=== PATIENT | male | born 1960 | race Caucasian/White ===

== ENCOUNTER 2020-02-03 15:11 | Inpatient (IN) ==
[2020-02-03] MEDS ORDERED: Naloxone 0.4 MG/ML INJ IVP PRN (17:49)
[2020-02-03] MEDS ORDERED: *HR* Heparin 5,000 UNIT/ML VIAL IVP ONE (17:53)
[2020-02-03] MEDS ORDERED: *HR* Heparin 5,000 UNIT/ML VIAL IVP PRN ×2 (17:53)
[2020-02-03] MEDS ORDERED: Isovue-370 500 ML BOTTLE IVP ONE (17:55)
[2020-02-03] MEDS ORDERED: Heparin 25,000 UNIT/250 ML D5W 25,000 UNIT/250 ML IV.SOLN IVC SCH (18:00)
[2020-02-03] MEDS ORDERED: Furosemide 40 MG/4 ML VIAL IVP SCH (21:00)
[2020-02-03 21:17] LABS: Heparin anti-factor XA UFH 0.3 IU/mL (0.30-0.70)
[2020-02-03 21:18] LABS: INR 1.3; Prothrombin Time 14.8 Seconds (9.4-12.1)
[2020-02-03] MEDS ORDERED: Famotidine 20 MG/2 ML VIAL IVP ONE (22:07)
[2020-02-03] MEDS ORDERED: methylPREDNISolone 125 MG/2 ML VIAL IVP ONE (22:11)
[2020-02-03] MEDS: levoFLOXacin 750 MG TABLET PO SCH (22:30)
[2020-02-03] MEDS: Metoprolol XL (24 HR) Succ 25 MG TAB.ER.24H PO SCH (22:30)
[2020-02-03] MEDS ORDERED: Acetaminophen 325 MG TABLET PO PRN (22:35)
[2020-02-04] MEDS ORDERED: Ketorolac 15 MG/ML VIAL IVP PRN (00:09)
[2020-02-04 00:18] LABS: Alanine Aminotransferase 17 Units/L (7-52); Albumin 3.4 g/dL (3.5-5.7); Alkaline Phosphatase 66 Units/L (34-104); Aspartate Amino Transferase 55 Units/L (13-39); BUN/Creatinine Ratio 17 (6-26); Blood Urea Nitrogen 24 mg/dL (8-23); Calcium 8.3 mg/dL (8.6-10.3); Carbon Dioxide 22 mEq/L (23-29); Chloride 101 mEq/L (98-107); Chol/HDL Ratio 2.5 (0-4.9); Cholesterol 76 mg/dL (< 200); Globulin 3.5 g/dL (2.4-3.5); Glucose 130 mg/dL (70-105); HDL Cholesterol 30 mg/dL (40-59); LDL Cholesterol,Calculated 29 mg/dL (0-99); Lactate Dehydrogenase 210 Units/L (140-271); Magnesium 1.3 mg/dL (1.6-2.6); Osmolality,Calculated 286 (280-300); Phosphorous 1.8 mg/dL (2.7-4.5); Potassium 3.1 mEq/L (3.5-5.1); Sodium 135 mEq/L (136-145); Total Protein 6.9 g/dL (6.4-8.9); Triglycerides 83 mg/dL (< 150); eGFR For African Americans > 60 (> 60); eGFR For Non-African Americans 51 (> 60)
[2020-02-04 00:26] LABS: Hematocrit 38.8 % (37.5-50.1); Mean Corpuscular HGB Conc 33.5 g/dL (31.6-35.5); Mean Corpuscular Hemoglobin 31.3 pg (28.0-33.3); Mean Corpuscular Volume 93.3 fL (83.0-100.0); Mean Platelet Volume 10.9 fL (9.4-12.4); Platelet Count 137 K/mcL (140-400); Red Blood Count 4.16 M/mcL (4.19-5.50); Red Cell Distribution Width 13.7 % (11.5-14.5); White Blood Count 8.3 K/mcL (4.3-11.1)
[2020-02-04 00:38] LABS: Ferritin 200 ng/mL (20-250)
[2020-02-04] MEDS ORDERED: Heparin 25,000 UNIT/250 ML D5W 25,000 UNIT/250 ML IV.SOLN IVC SCH (01:00)
[2020-02-04 02:26] LABS: Amphetamine Screen,Urine Negative ng/mL (Cutoff=1000); Barbiturate Screen,Urine Negative ng/mL (Cutoff=200); Benzodiazepines Screen,Urine Negative ng/mL (Cutoff=200); Cannabinoid Screen,Urine Negative ng/mL (Cutoff = 50); Cocaine Screen,Urine Negative ng/mL (Cutoff= 300); Opiate Screen,Urine Negative ng/mL (Cutoff=300); Phencyclidine Screen,Urine Negative ng/mL (Cutoff=25)
[2020-02-04 02:28] LABS: Bilirubin,Urine Negative (Negative); Blood,Urine Small (Negative); Clarity,Urine Cloudy (Clear); Color,Urine Yellow (Yellow); Glucose,Urine (UA) Normal (Normal); Ketones,Urine Negative (Negative); Leukocyte Esterase,Urine Negative (Negative); Nitrite,Urine Negative (Negative); Protein,Urine Negative (Neg-Trace); Specific Gravity,Urine 1.021 (1.010-1.025); Urobilinogen,Urine Normal (Normal)
[2020-02-04 02:29] LABS: Hyaline Casts,Urine None Seen per lpf (None-Few); RBC,Urine 0-3 per hpf (0-3); Squamous Epithelial Cell,Urine Many per lpf (None-Few); WBC,Urine 0-3 per hpf (0-3)
[2020-02-04 03:28] LABS: Bacteria,Urine Few per hpf (None-Few)
[2020-02-04] MEDS ORDERED: Potassium Phosphate 44 MEQ in 0.9 % Sodium Chloride 250 ML IVPB ONE (07:50)
[2020-02-04] MEDS ORDERED: 0.9 % Sodium Chloride 1,000 ML IVC SCH (09:00)
[2020-02-04] MEDS: levoFLOXacin 750 MG TABLET PO SCH (09:04)
[2020-02-04] MEDS: Metoprolol XL (24 HR) Succ 25 MG TAB.ER.24H PO SCH (09:05)
[2020-02-04] MEDS: 0.9 % Sodium Chloride 1,000 ML IVC SCH (11:34)
[2020-02-04] MEDS: Cortisporin *EAR*Susp 10 ML BOTTLE RIGHT EAR SCH ×3 (11:37→21:52)
[2020-02-04 14:59] LABS: Basophils % 0.3 %; Mean Platelet Volume 11.2 fL (9.4-12.4); Platelet Count 113 K/mcL (140-400)
[2020-02-04 15:01] LABS: Hematocrit 40.2 % (37.5-50.1); Hemoglobin 13.5 g/dL (12.9-16.9); Immature Granulocytes % 0.7 % (0-4); Immature Platelets 6.9 % (1.1-6.1); Lymphocytes # 0.6 K/mcL (0.6-4.6); Lymphocytes % 5.5 %; Mean Corpuscular HGB Conc 33.6 g/dL (31.6-35.5); Mean Corpuscular Hemoglobin 31.5 pg (28.0-33.3); Mean Corpuscular Volume 93.9 fL (83.0-100.0); Monocytes # 0.3 K/mcL (0.0-1.3); Monocytes % 2.3 %; Neutrophils # 10.5 K/mcL (1.6-8.9); Red Blood Count 4.28 M/mcL (4.19-5.50); Segmented Neutrophils % 91.2 %; White Blood Count 11.5 K/mcL (4.3-11.1)
[2020-02-04 15:16] LABS: Alanine Aminotransferase 23 Units/L (7-52); Albumin 3.7 g/dL (3.5-5.7); Alkaline Phosphatase 57 Units/L (34-104); Aspartate Amino Transferase 78 Units/L (13-39); BUN/Creatinine Ratio 31 (6-26); Bilirubin,Total 1.3 mg/dL (0.3-1.0); Blood Urea Nitrogen 32 mg/dL (8-23); Calcium 8.9 mg/dL (8.6-10.3); Carbon Dioxide 23 mEq/L (23-29); Chloride 103 mEq/L (98-107); Globulin 3.7 g/dL (2.4-3.5); Glucose 134 mg/dL (70-105); Osmolality,Calculated 293 (280-300); Potassium 3.4 mEq/L (3.5-5.1); Sodium 137 mEq/L (136-145); Total Protein 7.4 g/dL (6.4-8.9); eGFR For African Americans > 60 (> 60); eGFR For Non-African Americans > 60 (> 60)
[2020-02-04] MEDS: *HR* Heparin 5,000 UNIT/ML VIAL SQ SCH (18:08)
[2020-02-04] MEDS: Aspirin Enteric Coated 81 MG Tablet PO SCH (18:10)
[2020-02-05] MEDS: *HR* Heparin 5,000 UNIT/ML VIAL SQ SCH ×2 (05:00→18:24)
[2020-02-05 05:37] LABS: Hematocrit 39.4 % (37.5-50.1); Hemoglobin 13.2 g/dL (12.9-16.9); Immature Platelets 8.2 % (1.1-6.1); Mean Corpuscular HGB Conc 33.5 g/dL (31.6-35.5); Mean Corpuscular Hemoglobin 31.3 pg (28.0-33.3); Mean Corpuscular Volume 93.4 fL (83.0-100.0); Mean Platelet Volume 11.5 fL (9.4-12.4); Red Blood Count 4.22 M/mcL (4.19-5.50); White Blood Count 12.9 K/mcL (4.3-11.1)
[2020-02-05 05:54] LABS: BUN/Creatinine Ratio 36 (6-26); Blood Urea Nitrogen 32 mg/dL (8-23); Calcium 8.5 mg/dL (8.6-10.3); Carbon Dioxide 23 mEq/L (23-29); Chloride 103 mEq/L (98-107); Glucose 145 mg/dL (70-105); Osmolality,Calculated 289 (280-300); Potassium 3.3 mEq/L (3.5-5.1); Sodium 135 mEq/L (136-145); eGFR For African Americans > 60 (> 60); eGFR For Non-African Americans > 60 (> 60)
[2020-02-05] MEDS: 0.9 % Sodium Chloride 1,000 ML IVC SCH (07:38)
[2020-02-05] MEDS: Isosorbide MONOnitrate (24 HR) 30 MG TAB.ER.24H PO SCH (09:50)
[2020-02-05] MEDS: Aspirin Enteric Coated 81 MG Tablet PO SCH (09:50)
[2020-02-05] MEDS: levoFLOXacin 750 MG TABLET PO SCH (09:50)
[2020-02-05] MEDS: Metoprolol XL (24 HR) Succ 25 MG TAB.ER.24H PO SCH (09:51)
[2020-02-05] MEDS: Cortisporin *EAR*Susp 10 ML BOTTLE RIGHT EAR SCH ×3 (09:52→19:59)
[2020-02-05] MEDS: Ondansetron 4 MG/2 ML VIAL IVP PRN (19:57)
[2020-02-06 03:45] LABS: Basophils % 0.2 %; Hematocrit 38.6 % (37.5-50.1); Hemoglobin 12.6 g/dL (12.9-16.9); Immature Granulocytes % 0.7 % (0-4); Immature Platelets 7.5 % (1.1-6.1); Lymphocytes # 0.6 K/mcL (0.6-4.6); Lymphocytes % 6.4 %; Mean Corpuscular HGB Conc 32.6 g/dL (31.6-35.5); Mean Corpuscular Hemoglobin 30.9 pg (28.0-33.3); Mean Corpuscular Volume 94.6 fL (83.0-100.0); Mean Platelet Volume 12.2 fL (9.4-12.4); Monocytes # 0.7 K/mcL (0.0-1.3); Monocytes % 8.3 %; Neutrophils # 7.3 K/mcL (1.6-8.9); Red Blood Count 4.08 M/mcL (4.19-5.50); Red Cell Distribution Width 13.8 % (11.5-14.5); Segmented Neutrophils % 84.4 %; White Blood Count 8.7 K/mcL (4.3-11.1)
[2020-02-06 03:53] LABS: Platelet Count 97 K/mcL (140-400)
[2020-02-06 04:00] LABS: BUN/Creatinine Ratio 28 (6-26); Blood Urea Nitrogen 29 mg/dL (8-23); Calcium 8.2 mg/dL (8.6-10.3); Carbon Dioxide 24 mEq/L (23-29); Chloride 103 mEq/L (98-107); Glucose 117 mg/dL (70-105); Osmolality,Calculated 289 (280-300); Potassium 3.4 mEq/L (3.5-5.1); Sodium 136 mEq/L (136-145); eGFR For African Americans > 60 (> 60); eGFR For Non-African Americans > 60 (> 60)
[2020-02-06] MEDS: *HR* Heparin 5,000 UNIT/ML VIAL SQ SCH ×2 (05:50→16:13)
[2020-02-06] MEDS: Ondansetron 4 MG/2 ML VIAL IVP PRN (05:51)
[2020-02-06] MEDS ORDERED: polyethylene glycoL 3350 17 GM POWD.PACK PO PRN (06:01)
[2020-02-06 08:29] LABS: Magnesium 1.8 mg/dL (1.6-2.6); Phosphorous 2.6 mg/dL (2.7-4.5)
[2020-02-06] MEDS: Potassium Chloride Elixir 20 MEQ/15 ML UDC PO SCH ×2 (08:55→11:17)
[2020-02-06] MEDS: Metoprolol XL (24 HR) Succ 25 MG TAB.ER.24H PO SCH (08:56)
[2020-02-06] MEDS: Aspirin Enteric Coated 81 MG Tablet PO SCH (08:56)
[2020-02-06] MEDS: Isosorbide MONOnitrate (24 HR) 30 MG TAB.ER.24H PO SCH (08:56)
[2020-02-06] MEDS: levoFLOXacin 750 MG TABLET PO SCH (08:57)
[2020-02-06] MEDS: Cortisporin *EAR*Susp 10 ML BOTTLE RIGHT EAR SCH ×3 (09:44→21:26)
[2020-02-06] MEDS ORDERED: Naloxone 0.4 MG/ML INJ IVP PRN (11:10)
[2020-02-06] MEDS ORDERED: *HR* HYDROcodone/Acet 5/325 mg TABLET PO PRN (11:10)
[2020-02-06] MEDS ORDERED: Lactulose Oral Soln 20 GM/30 ML UDC PO SCH (12:15)
[2020-02-06] MEDS: Milk and Molasses Enema 200 ML RC ONE ×2 (13:36→13:54)
[2020-02-06] MEDS ORDERED: Perflutren Lipid Microsphere 1.3 ML in 0.9 % Sodium Chloride 8.7 ML IVP ONE (19:36)
[2020-02-06] MEDS: Nitroglycerin 0.4 MG TAB.SUBL SL PRN ×2 (21:05→21:15)
[2020-02-07] MEDS ORDERED: *HR* LORazepam 2 MG/ML VIAL IVP ONE ×2 (03:10→20:29)
[2020-02-07] MEDS: Nitroglycerin 0.4 MG TAB.SUBL SL PRN ×2 (03:20→03:27)
[2020-02-07] MEDS: Levalbuterol 1 PUFF INHALER IH SCH ×6 (03:54→23:24)
[2020-02-07 04:02] LABS: Hematocrit 41.7 % (37.5-50.1); Mean Corpuscular HGB Conc 33.6 g/dL (31.6-35.5); Mean Corpuscular Hemoglobin 31.9 pg (28.0-33.3); Mean Platelet Volume 11.8 fL (9.4-12.4); Platelet Count 106 K/mcL (140-400); Red Blood Count 4.39 M/mcL (4.19-5.50); Red Cell Distribution Width 13.9 % (11.5-14.5); White Blood Count 6.4 K/mcL (4.3-11.1)
[2020-02-07 04:27] LABS: BUN/Creatinine Ratio 23 (6-26); Blood Urea Nitrogen 25 mg/dL (8-23); Calcium 8.5 mg/dL (8.6-10.3); Carbon Dioxide 19 mEq/L (23-29); Chloride 106 mEq/L (98-107); Glucose 121 mg/dL (70-105); Magnesium 1.6 mg/dL (1.6-2.6); Osmolality,Calculated 292 (280-300); Potassium 4.3 mEq/L (3.5-5.1); Sodium 138 mEq/L (136-145); Troponin I 0.03 ng/mL (< 0.04); eGFR For African Americans > 60 (> 60); eGFR For Non-African Americans > 60 (> 60)
[2020-02-07] MEDS: *HR* Heparin 5,000 UNIT/ML VIAL SQ SCH ×2 (05:43→17:27)
[2020-02-07] MEDS: Aspirin Enteric Coated 81 MG Tablet PO SCH (07:48)
[2020-02-07] MEDS: levoFLOXacin 750 MG TABLET PO SCH (07:48)
[2020-02-07] MEDS: Isosorbide MONOnitrate (24 HR) 30 MG TAB.ER.24H PO SCH (07:48)
[2020-02-07] MEDS: Metoprolol XL (24 HR) Succ 25 MG TAB.ER.24H PO SCH (07:49)
[2020-02-07] MEDS: Cortisporin *EAR*Susp 10 ML BOTTLE RIGHT EAR SCH ×3 (07:50→20:47)
[2020-02-07] MEDS: *HR* OxyCODONE Immed Rel 5 MG TABLET PO PRN (17:26)
[2020-02-07] MEDS ORDERED: Acetaminophen IV 1,000 MG/100 ML INFUS..BTL IVPB ONE (21:13)
[2020-02-07 21:32] LABS: ABG Base Excess 2 mEq/L (-2 to 3); ABG HCO3 25 mEq/L (21-27); ABG Oxygen Saturation 90 % (95-98); ABG PCO2 34 mmHg (35-45); ABG PH 7.48 pH Units (7.32-7.45); ABG PO2 54 mmHg (85-104); ABG TCO2 26 mEq/L (20-26)
[2020-02-07] MEDS: Calcium Gluconate 1gm/50mL 1 GM/50 ML BAG IVPB SCH ×2 (22:36→23:37)
[2020-02-08 01:04] LABS: Hematocrit 37.1 % (37.5-50.1); Hemoglobin 12.3 g/dL (12.9-16.9); Mean Corpuscular HGB Conc 33.2 g/dL (31.6-35.5); Mean Corpuscular Hemoglobin 31.5 pg (28.0-33.3); Mean Corpuscular Volume 95.1 fL (83.0-100.0); Mean Platelet Volume 11.7 fL (9.4-12.4); Red Blood Count 3.9 M/mcL (4.19-5.50); Red Cell Distribution Width 13.7 % (11.5-14.5); White Blood Count 7.8 K/mcL (4.3-11.1)
[2020-02-08 01:14] LABS: BUN/Creatinine Ratio 22 (6-26); Blood Urea Nitrogen 24 mg/dL (8-23); Calcium 8.6 mg/dL (8.6-10.3); Carbon Dioxide 24 mEq/L (23-29); Chloride 101 mEq/L (98-107); Glucose 141 mg/dL (70-105); Osmolality,Calculated 282 (280-300); Potassium 3.4 mEq/L (3.5-5.1); Sodium 133 mEq/L (136-145); eGFR For African Americans > 60 (> 60); eGFR For Non-African Americans > 60 (> 60)
[2020-02-08] MEDS: Levalbuterol 1 PUFF INHALER IH SCH ×6 (03:54→23:17)
[2020-02-08] MEDS: *HR* Heparin 5,000 UNIT/ML VIAL SQ SCH ×2 (05:50→16:44)
[2020-02-08 09:10] LABS: Eosinophils % 1.2 %; Lymphocytes % 15.3 %; Segmented Neutrophils % 67.6 %
[2020-02-08 09:12] LABS: Basophils # 0.1 K/mcL (0.0-0.2); Basophils % 0.7 %; Eosinophils # 0.1 K/mcL (0.0-0.6); Hematocrit 38.2 % (37.5-50.1); Hemoglobin 12.6 g/dL (12.9-16.9); Immature Granulocytes % 2.1 % (0-4); Immature Platelets 9.5 % (1.1-6.1); Lymphocytes # 1.2 K/mcL (0.6-4.6); Mean Corpuscular Hemoglobin 31.5 pg (28.0-33.3); Mean Corpuscular Volume 95.5 fL (83.0-100.0); Mean Platelet Volume 11.1 fL (9.4-12.4); Monocytes % 13.1 %; Neutrophils # 5.2 K/mcL (1.6-8.9); Platelet Count 95 K/mcL (140-400); White Blood Count 7.7 K/mcL (4.3-11.1)
[2020-02-08 09:54] LABS: BUN/Creatinine Ratio 24 (6-26); Blood Urea Nitrogen 21 mg/dL (8-23); Calcium 8.5 mg/dL (8.6-10.3); Carbon Dioxide 26 mEq/L (23-29); Chloride 104 mEq/L (98-107); Glucose 98 mg/dL (70-105); Osmolality,Calculated 285 (280-300); Potassium 4.3 mEq/L (3.5-5.1); Sodium 136 mEq/L (136-145); eGFR For African Americans > 60 (> 60); eGFR For Non-African Americans > 60 (> 60)
[2020-02-08] MEDS: Isosorbide MONOnitrate (24 HR) 30 MG TAB.ER.24H PO SCH (10:34)
[2020-02-08] MEDS: *HR* OxyCODONE Immed Rel 5 MG TABLET PO PRN ×2 (10:34→19:57)
[2020-02-08] MEDS: Aspirin Enteric Coated 81 MG Tablet PO SCH (10:34)
[2020-02-08] MEDS: Piperacillin/Tazobactam 3.375 GM in 0.9 % Sodium Chloride Mini Bag 100 ML IVPB SCH ×2 (10:34→16:44)
[2020-02-08] MEDS: Metoprolol XL (24 HR) Succ 25 MG TAB.ER.24H PO SCH (10:34)
[2020-02-08] MEDS: Cortisporin *EAR*Susp 10 ML BOTTLE RIGHT EAR SCH ×3 (10:36→19:58)
[2020-02-08 10:51] LABS: Albumin 2.9 g/dL (3.5-5.7); Albumin/Globulin Ratio 0.9 (1.1-2.2); Bilirubin,Direct 0.4 mg/dL (0.0-0.2); Bilirubin,Indirect 0.7 mg/dL (0.0-1.0); Bilirubin,Total 1.1 mg/dL (0.3-1.0); Globulin 3.2 g/dL (2.4-3.5); Total Protein 6.1 g/dL (6.4-8.9)
[2020-02-08] MEDS: Furosemide 20 MG/2 ML VIAL IVP SCH ×2 (15:00→19:57)
[2020-02-08] MEDS: Doxycycline 100 MG in 0.9 % Sodium Chloride Mini Bag 100 ML IVPB SCH (15:40)
[2020-02-08] MEDS: Lactulose Oral Soln 20 GM/30 ML UDC PO SCH ×2 (18:21→19:57)
[2020-02-09] MEDS: Piperacillin/Tazobactam 3.375 GM in 0.9 % Sodium Chloride Mini Bag 100 ML IVPB SCH ×3 (00:34→17:59)
[2020-02-09] MEDS: Doxycycline 100 MG in 0.9 % Sodium Chloride Mini Bag 100 ML IVPB SCH ×2 (02:54→13:26)
[2020-02-09] MEDS: Levalbuterol 1 PUFF INHALER IH SCH ×6 (03:25→23:10)
[2020-02-09] MEDS: *HR* Heparin 5,000 UNIT/ML VIAL SQ SCH ×2 (05:57→17:55)
[2020-02-09] MEDS: *HR* OxyCODONE Immed Rel 5 MG TABLET PO PRN (05:59)
[2020-02-09] MEDS: Lactulose Oral Soln 20 GM/30 ML UDC PO SCH ×2 (08:02→20:42)
[2020-02-09] MEDS: Aspirin Enteric Coated 81 MG Tablet PO SCH (08:02)
[2020-02-09] MEDS: Furosemide 20 MG/2 ML VIAL IVP SCH ×2 (08:02→20:42)
[2020-02-09] MEDS: Isosorbide MONOnitrate (24 HR) 30 MG TAB.ER.24H PO SCH (08:02)
[2020-02-09] MEDS: Metoprolol XL (24 HR) Succ 25 MG TAB.ER.24H PO SCH (08:02)
[2020-02-09] MEDS: Cortisporin *EAR*Susp 10 ML BOTTLE RIGHT EAR SCH ×3 (09:25→20:42)
[2020-02-09 10:26] LABS: Basophils # 0.1 K/mcL (0.0-0.2); Basophils % 1.1 %; Eosinophils # 0.3 K/mcL (0.0-0.6); Eosinophils % 2.5 %; Hematocrit 38.7 % (37.5-50.1); Hemoglobin 13.1 g/dL (12.9-16.9); Immature Granulocytes % 3.4 % (0-4); Lymphocytes # 1.6 K/mcL (0.6-4.6); Lymphocytes % 15.5 %; Mean Corpuscular HGB Conc 33.9 g/dL (31.6-35.5); Mean Corpuscular Hemoglobin 31.5 pg (28.0-33.3); Mean Platelet Volume 11.5 fL (9.4-12.4); Monocytes # 1.3 K/mcL (0.0-1.3); Monocytes % 12.3 %; Neutrophils # 6.7 K/mcL (1.6-8.9); Platelet Count 150 K/mcL (140-400); Red Blood Count 4.16 M/mcL (4.19-5.50); Red Cell Distribution Width 13.9 % (11.5-14.5); Segmented Neutrophils % 65.2 %; White Blood Count 10.3 K/mcL (4.3-11.1)
[2020-02-09 10:39] LABS: BUN/Creatinine Ratio 17 (6-26); Blood Urea Nitrogen 19 mg/dL (8-23); Calcium 8.4 mg/dL (8.6-10.3); Carbon Dioxide 26 mEq/L (23-29); Chloride 101 mEq/L (98-107); Glucose 131 mg/dL (70-105); Osmolality,Calculated 286 (280-300); Potassium 3.8 mEq/L (3.5-5.1); Sodium 136 mEq/L (136-145); eGFR For African Americans > 60 (> 60); eGFR For Non-African Americans > 60 (> 60)
[2020-02-09] MEDS: Acetaminophen 325 MG TABLET PO PRN (19:47)
[2020-02-09] MEDS: Ondansetron 4 MG/2 ML VIAL IVP PRN (20:47)
[2020-02-10] MEDS: Piperacillin/Tazobactam 3.375 GM in 0.9 % Sodium Chloride Mini Bag 100 ML IVPB SCH ×3 (00:33→17:16)
[2020-02-10] MEDS ORDERED: Doxycycline 100 MG in 0.9 % Sodium Chloride Mini Bag 100 ML IVPB SCH (04:00)
[2020-02-10] MEDS: Levalbuterol 1 PUFF INHALER IH SCH ×6 (04:06→23:50)
[2020-02-10] MEDS: Doxycycline 100 MG in 0.9 % Sodium Chloride Mini Bag 100 ML IVPB SCH (04:08)
[2020-02-10] MEDS: *HR* Heparin 5,000 UNIT/ML VIAL SQ SCH ×2 (06:09→17:18)
[2020-02-10 07:30] LABS: Basophils # 0.1 K/mcL (0.0-0.2); Eosinophils # 0.2 K/mcL (0.0-0.6); Hematocrit 41.5 % (37.5-50.1); Hemoglobin 13.7 g/dL (12.9-16.9); Immature Granulocytes % 3.8 % (0-4); Lymphocytes % 16.8 %; Mean Corpuscular Hemoglobin 31.1 pg (28.0-33.3); Mean Corpuscular Volume 94.3 fL (83.0-100.0); Mean Platelet Volume 12.3 fL (9.4-12.4); Monocytes # 1.5 K/mcL (0.0-1.3); Monocytes % 12.7 %; Neutrophils # 7.5 K/mcL (1.6-8.9); Platelet Count 132 K/mcL (140-400); Red Cell Distribution Width 13.6 % (11.5-14.5); Segmented Neutrophils % 63.7 %; White Blood Count 11.7 K/mcL (4.3-11.1)
[2020-02-10 07:35] LABS: BUN/Creatinine Ratio 18 (6-26); Blood Urea Nitrogen 20 mg/dL (8-23); Calcium 8.7 mg/dL (8.6-10.3); Carbon Dioxide 29 mEq/L (23-29); Chloride 100 mEq/L (98-107); Glucose 106 mg/dL (70-105); Osmolality,Calculated 287 (280-300); Sodium 137 mEq/L (136-145); eGFR For African Americans > 60 (> 60); eGFR For Non-African Americans > 60 (> 60)
[2020-02-10] MEDS: Furosemide 20 MG/2 ML VIAL IVP SCH ×2 (08:38→21:42)
[2020-02-10] MEDS: Lactulose Oral Soln 20 GM/30 ML UDC PO SCH ×3 (08:38→21:43)
[2020-02-10] MEDS: Aspirin Enteric Coated 81 MG Tablet PO SCH (08:38)
[2020-02-10] MEDS: Isosorbide MONOnitrate (24 HR) 30 MG TAB.ER.24H PO SCH (08:38)
[2020-02-10] MEDS: Metoprolol XL (24 HR) Succ 25 MG TAB.ER.24H PO SCH (08:38)
[2020-02-10] MEDS: Cortisporin *EAR*Susp 10 ML BOTTLE RIGHT EAR SCH ×3 (08:39→21:43)
[2020-02-10] MEDS: Vancomycin 2,000 MG/520 ML IV.SOLN IVPB ONE ×2 (09:40→10:39)
[2020-02-10] MEDS: *HR* OxyCODONE Immed Rel 5 MG TABLET PO PRN ×2 (09:49→21:42)
[2020-02-10] MEDS: Ondansetron 4 MG/2 ML VIAL IVP PRN (10:42)
[2020-02-10] MEDS: Acetaminophen 325 MG TABLET PO PRN (16:10)
[2020-02-10] MEDS ORDERED: Vancomycin 1 EACH in 0.9 % Sodium Chloride 250 ML IVPB SCH (18:00)
[2020-02-10 20:49] LABS: Bilirubin,Urine Negative (Negative); Blood,Urine Negative (Negative); Clarity,Urine Clear (Clear); Color,Urine Yellow (Yellow); Glucose,Urine (UA) Normal (Normal); Ketones,Urine Negative (Negative); Leukocyte Esterase,Urine Negative (Negative); Nitrite,Urine Negative (Negative); Protein,Urine Trace mg/dL (Neg-Trace); Specific Gravity,Urine 1.027 (1.010-1.025)
[2020-02-10] MEDS ORDERED: Vancomycin 2,000 MG/520 ML IV.SOLN IVPB ONE (22:00)
[2020-02-11] MEDS: Piperacillin/Tazobactam 3.375 GM in 0.9 % Sodium Chloride Mini Bag 100 ML IVPB SCH ×4 (00:13→23:49)
[2020-02-11] MEDS: Levalbuterol 1 PUFF INHALER IH SCH ×5 (03:53→20:38)
[2020-02-11] MEDS: *HR* Heparin 5,000 UNIT/ML VIAL SQ SCH ×2 (05:30→19:34)
[2020-02-11] MEDS ORDERED: Piperacillin/Tazobactam 3.375 GM VIAL ONE (08:58)
[2020-02-11] MEDS: Isosorbide MONOnitrate (24 HR) 30 MG TAB.ER.24H PO SCH (09:19)
[2020-02-11] MEDS: Lactulose Oral Soln 20 GM/30 ML UDC PO SCH ×2 (09:19→21:00)
[2020-02-11] MEDS: Metoprolol XL (24 HR) Succ 25 MG TAB.ER.24H PO SCH (09:19)
[2020-02-11] MEDS: Aspirin Enteric Coated 81 MG Tablet PO SCH (09:19)
[2020-02-11] MEDS: *HR* OxyCODONE Immed Rel 5 MG TABLET PO PRN ×2 (09:22→20:48)
[2020-02-11] MEDS: Cortisporin *EAR*Susp 10 ML BOTTLE RIGHT EAR SCH ×3 (09:22→20:49)
[2020-02-11] MEDS: Vancomycin 1,500 MG/265 ML IV.SOLN IVPB SCH (09:25)
[2020-02-11] MEDS: Ondansetron 4 MG/2 ML VIAL IVP PRN (09:28)
[2020-02-11] MEDS: Acetaminophen 325 MG TABLET PO PRN (13:16)
[2020-02-11 14:03] LABS: Basophils # 0.1 K/mcL (0.0-0.2); Basophils % 0.9 %; Eosinophils # 0.1 K/mcL (0.0-0.6); Eosinophils % 1.2 %; Hematocrit 36.4 % (37.5-50.1); Immature Granulocytes % 3.1 % (0-4); Lymphocytes # 1.1 K/mcL (0.6-4.6); Mean Corpuscular Hemoglobin 31.1 pg (28.0-33.3); Mean Corpuscular Volume 94.3 fL (83.0-100.0); Mean Platelet Volume 10.9 fL (9.4-12.4); Monocytes # 0.9 K/mcL (0.0-1.3); Monocytes % 9.4 %; Neutrophils # 6.8 K/mcL (1.6-8.9); Platelet Count 168 K/mcL (140-400); Red Blood Count 3.86 M/mcL (4.19-5.50); Red Cell Distribution Width 13.3 % (11.5-14.5); Segmented Neutrophils % 73.4 %; White Blood Count 9.3 K/mcL (4.3-11.1)
[2020-02-11 14:17] LABS: BUN/Creatinine Ratio 18 (6-26); Blood Urea Nitrogen 15 mg/dL (8-23); Calcium 8.1 mg/dL (8.6-10.3); Carbon Dioxide 33 mEq/L (23-29); Chloride 97 mEq/L (98-107); Glucose 101 mg/dL (70-105); Osmolality,Calculated 275 (280-300); Potassium 3.4 mEq/L (3.5-5.1); Sodium 132 mEq/L (136-145); eGFR For African Americans > 60 (> 60); eGFR For Non-African Americans > 60 (> 60)
[2020-02-11] MEDS ORDERED: *HR* Propofol 200 MG/20 ML VIAL IVP ONE (16:02)
[2020-02-11] MEDS ORDERED: Lidocaine -MPF 2% 2 ML VIAL ONE (16:02)
[2020-02-11] MEDS ORDERED: *HR* FentaNYL (PF) 100 MCG/2 ML VIAL ONE ×2 (16:02→17:39)
[2020-02-11] MEDS ORDERED: Ciprofloxacin/Dex *EAR* Susp 7.5 ML BOTTLE ONE (16:10)
[2020-02-11] MEDS ORDERED: Ondansetron 4 MG/2 ML VIAL ONE (16:44)
[2020-02-11] MEDS ORDERED: Dexamethasone 4 MG/ML VIAL ONE (16:44)
[2020-02-11] MEDS ORDERED: Oxymetazoline Nasal SPRAY BOTTLE NS ONE (16:54)
[2020-02-11] MEDS ORDERED: *HR* PHENYLEPHRINE 1,000 MCG/10 ML SYRINGE IVP ONE (16:57)
[2020-02-11] MEDS ORDERED: *HR* FentaNYL (PF) 100 MCG/2 ML VIAL IVP PRN (17:37)
[2020-02-11] MEDS: Ondansetron 4 MG/2 ML VIAL IVP SCH ×2 (19:35→23:49)
[2020-02-11] MEDS: Ciprofloxacin/Dex *EAR* Susp 7.5 ML BOTTLE RIGHT EAR SCH ×2 (19:35→20:49)
[2020-02-11] MEDS: Vancomycin 1,750 MG/517.5 ML IV.SOLN IVPB SCH (23:48)
[2020-02-12] MEDS: Vancomycin 1,500 MG/265 ML IV.SOLN IVPB SCH
[2020-02-12] MEDS: Levalbuterol 1 PUFF INHALER IH SCH ×6 (00:25→19:59)
[2020-02-12] MEDS: *HR* Heparin 5,000 UNIT/ML VIAL SQ SCH ×2 (05:20→17:52)
[2020-02-12] MEDS: Ondansetron 4 MG/2 ML VIAL IVP SCH ×3 (05:20→17:53)
[2020-02-12 06:50] LABS: BUN/Creatinine Ratio 18 (6-26); Blood Urea Nitrogen 17 mg/dL (8-23); Carbon Dioxide 26 mEq/L (23-29); Chloride 99 mEq/L (98-107); Glucose 96 mg/dL (70-105); Osmolality,Calculated 277 (280-300); Potassium 4.2 mEq/L (3.5-5.1); Sodium 133 mEq/L (136-145); eGFR For African Americans > 60 (> 60); eGFR For Non-African Americans > 60 (> 60)
[2020-02-12] MEDS: Piperacillin/Tazobactam 3.375 GM in 0.9 % Sodium Chloride Mini Bag 100 ML IVPB SCH (08:44)
[2020-02-12] MEDS: Isosorbide MONOnitrate (24 HR) 30 MG TAB.ER.24H PO SCH (08:45)
[2020-02-12] MEDS: Aspirin Enteric Coated 81 MG Tablet PO SCH (08:45)
[2020-02-12] MEDS: Metoprolol XL (24 HR) Succ 25 MG TAB.ER.24H PO SCH (08:45)
[2020-02-12] MEDS: Ciprofloxacin/Dex *EAR* Susp 7.5 ML BOTTLE RIGHT EAR SCH ×3 (08:47→20:40)
[2020-02-12] MEDS: Lactulose Oral Soln 20 GM/30 ML UDC PO SCH ×2 (08:47→20:40)
[2020-02-12] MEDS: Furosemide 20 MG/2 ML VIAL IVP SCH ×2 (08:48→20:40)
[2020-02-12 09:08] LABS: Basophils # 0.1 K/mcL (0.0-0.2); Basophils % 0.7 %; Eosinophils % 0.5 %; Hematocrit 35.3 % (37.5-50.1); Hemoglobin 11.7 g/dL (12.9-16.9); Immature Granulocytes % 3.3 % (0-4); Lymphocytes # 1.2 K/mcL (0.6-4.6); Lymphocytes % 14.2 %; Mean Corpuscular HGB Conc 33.1 g/dL (31.6-35.5); Mean Corpuscular Volume 93.4 fL (83.0-100.0); Mean Platelet Volume 11.3 fL (9.4-12.4); Monocytes # 0.8 K/mcL (0.0-1.3); Monocytes % 8.8 %; Neutrophils # 6.3 K/mcL (1.6-8.9); Platelet Count 155 K/mcL (140-400); Red Blood Count 3.78 M/mcL (4.19-5.50); Segmented Neutrophils % 72.5 %; White Blood Count 8.6 K/mcL (4.3-11.1)
[2020-02-12] MEDS: *HR* OxyCODONE Immed Rel 5 MG TABLET PO PRN ×3 (09:12→23:52)
[2020-02-12] MEDS: Vancomycin 1,750 MG/517.5 ML IV.SOLN IVPB SCH (11:36)
[2020-02-12] MEDS: Acetaminophen 325 MG TABLET PO PRN ×2 (12:22→17:54)
[2020-02-12] MEDS: Cefepime HCl 2,000 MG in 0.9 % Sodium Chloride Mini Bag 100 ML IVPB SCH ×2 (15:18→23:46)
[2020-02-12 18:17] LABS: Bilirubin,Urine Negative (Negative); Blood,Urine Negative (Negative); Clarity,Urine Clear (Clear); Color,Urine Yellow (Yellow); Glucose,Urine (UA) Normal (Normal); Ketones,Urine Negative (Negative); Leukocyte Esterase,Urine Negative (Negative); Nitrite,Urine Negative (Negative); Protein,Urine Trace mg/dL (Neg-Trace)
[2020-02-13] MEDS: Levalbuterol 1 PUFF INHALER IH SCH ×7 (00:01→23:30)
[2020-02-13] MEDS: Ondansetron 4 MG/2 ML VIAL IVP SCH ×5 (00:28→23:51)
[2020-02-13] MEDS: *HR* Heparin 5,000 UNIT/ML VIAL SQ SCH ×2 (05:02→19:51)
[2020-02-13] MEDS: Acetaminophen 325 MG TABLET PO PRN ×2 (06:53→15:44)
[2020-02-13 06:54] LABS: BUN/Creatinine Ratio 17 (6-26); Blood Urea Nitrogen 17 mg/dL (8-23); Carbon Dioxide 30 mEq/L (23-29); Chloride 95 mEq/L (98-107); Glucose 104 mg/dL (70-105); Osmolality,Calculated 272 (280-300); Potassium 3.4 mEq/L (3.5-5.1); Sodium 130 mEq/L (136-145); eGFR For African Americans > 60 (> 60); eGFR For Non-African Americans > 60 (> 60)
[2020-02-13] MEDS: Lactulose Oral Soln 20 GM/30 ML UDC PO SCH ×2 (07:40→20:12)
[2020-02-13] MEDS: Furosemide 20 MG/2 ML VIAL IVP SCH (07:48)
[2020-02-13] MEDS: Cefepime HCl 2,000 MG in 0.9 % Sodium Chloride Mini Bag 100 ML IVPB SCH ×3 (07:48→23:51)
[2020-02-13] MEDS: Aspirin Enteric Coated 81 MG Tablet PO SCH (07:49)
[2020-02-13] MEDS: Isosorbide MONOnitrate (24 HR) 30 MG TAB.ER.24H PO SCH (07:49)
[2020-02-13] MEDS: Metoprolol XL (24 HR) Succ 25 MG TAB.ER.24H PO SCH (07:49)
[2020-02-13] MEDS: Ciprofloxacin/Dex *EAR* Susp 7.5 ML BOTTLE RIGHT EAR SCH ×3 (07:50→20:18)
[2020-02-13 09:29] LABS: Basophils # 0.1 K/mcL (0.0-0.2); Basophils % 0.6 %; Eosinophils # 0.2 K/mcL (0.0-0.6); Eosinophils % 1.4 %; Hematocrit 35.3 % (37.5-50.1); Hemoglobin 11.4 g/dL (12.9-16.9); Immature Granulocytes % 1.5 % (0-4); Lymphocytes # 0.8 K/mcL (0.6-4.6); Lymphocytes % 7.7 %; Mean Corpuscular HGB Conc 32.3 g/dL (31.6-35.5); Mean Corpuscular Hemoglobin 30.6 pg (28.0-33.3); Mean Corpuscular Volume 94.6 fL (83.0-100.0); Mean Platelet Volume 10.4 fL (9.4-12.4); Monocytes # 0.5 K/mcL (0.0-1.3); Monocytes % 5.1 %; Neutrophils # 8.7 K/mcL (1.6-8.9); Platelet Count 187 K/mcL (140-400); Red Blood Count 3.73 M/mcL (4.19-5.50); Red Cell Distribution Width 13.1 % (11.5-14.5); Segmented Neutrophils % 83.7 %; White Blood Count 10.4 K/mcL (4.3-11.1)
[2020-02-13] MEDS: *HR* OxyCODONE Immed Rel 5 MG TABLET PO PRN ×2 (13:02→20:11)
[2020-02-13] MEDS: Furosemide 40 MG TABLET PO SCH (17:00)
[2020-02-14] MEDS: Acetaminophen 325 MG TABLET PO PRN
[2020-02-14 02:57] LABS: Basophils # 0.1 K/mcL (0.0-0.2); Basophils % 0.6 %; Eosinophils # 0.2 K/mcL (0.0-0.6); Eosinophils % 2.1 %; Hematocrit 33.8 % (37.5-50.1); Hemoglobin 11.1 g/dL (12.9-16.9); Immature Granulocytes % 1.3 % (0-4); Lymphocytes # 0.9 K/mcL (0.6-4.6); Lymphocytes % 10.5 %; Mean Corpuscular HGB Conc 32.8 g/dL (31.6-35.5); Mean Corpuscular Hemoglobin 30.8 pg (28.0-33.3); Mean Corpuscular Volume 93.9 fL (83.0-100.0); Mean Platelet Volume 10.5 fL (9.4-12.4); Monocytes # 0.7 K/mcL (0.0-1.3); Monocytes % 7.6 %; Neutrophils # 6.7 K/mcL (1.6-8.9); Platelet Count 179 K/mcL (140-400); Red Cell Distribution Width 12.8 % (11.5-14.5); Segmented Neutrophils % 77.9 %; White Blood Count 8.6 K/mcL (4.3-11.1)
[2020-02-14 03:14] LABS: BUN/Creatinine Ratio 18 (6-26); Blood Urea Nitrogen 14 mg/dL (8-23); Calcium 7.9 mg/dL (8.6-10.3); Carbon Dioxide 31 mEq/L (23-29); Chloride 94 mEq/L (98-107); Glucose 121 mg/dL (70-105); Osmolality,Calculated 272 (280-300); Sodium 130 mEq/L (136-145); eGFR For African Americans > 60 (> 60); eGFR For Non-African Americans > 60 (> 60)
[2020-02-14] MEDS: *HR* OxyCODONE Immed Rel 5 MG TABLET PO PRN ×3 (03:23→21:19)
[2020-02-14] MEDS: Levalbuterol 1 PUFF INHALER IH SCH ×6 (03:36→22:58)
[2020-02-14] MEDS: *HR* Heparin 5,000 UNIT/ML VIAL SQ SCH ×2 (05:57→17:43)
[2020-02-14] MEDS: Ondansetron 4 MG/2 ML VIAL IVP SCH ×3 (05:57→17:44)
[2020-02-14] MEDS ORDERED: Gadolinium Contrast Agent (WT Based) IV PRN (06:19)
[2020-02-14] MEDS: Cefepime HCl 2,000 MG in 0.9 % Sodium Chloride Mini Bag 100 ML IVPB SCH ×2 (08:26→16:41)
[2020-02-14] MEDS: Aspirin Enteric Coated 81 MG Tablet PO SCH (08:26)
[2020-02-14] MEDS: Isosorbide MONOnitrate (24 HR) 30 MG TAB.ER.24H PO SCH (08:26)
[2020-02-14] MEDS: Lactulose Oral Soln 20 GM/30 ML UDC PO SCH ×2 (08:26→19:48)
[2020-02-14] MEDS: Furosemide 40 MG TABLET PO SCH ×2 (08:26→16:47)
[2020-02-14] MEDS: Metoprolol XL (24 HR) Succ 25 MG TAB.ER.24H PO SCH (08:26)
[2020-02-14] MEDS: Ciprofloxacin/Dex *EAR* Susp 7.5 ML BOTTLE RIGHT EAR SCH ×3 (08:55→21:19)
[2020-02-14] MEDS: Vancomycin 1,750 MG/517.5 ML IV.SOLN IVPB SCH (14:09)
[2020-02-15] MEDS: Vancomycin 1,750 MG/517.5 ML IV.SOLN IVPB SCH (00:23)
[2020-02-15] MEDS: Cefepime HCl 2,000 MG in 0.9 % Sodium Chloride Mini Bag 100 ML IVPB SCH ×2 (00:24→08:31)
[2020-02-15] MEDS: Ondansetron 4 MG/2 ML VIAL IVP SCH ×3 (00:24→11:33)
[2020-02-15] MEDS: Acetaminophen 325 MG TABLET PO PRN ×2 (00:28→08:25)
[2020-02-15] MEDS: Levalbuterol 1 PUFF INHALER IH SCH ×3 (03:14→11:01)
[2020-02-15] MEDS: *HR* OxyCODONE Immed Rel 5 MG TABLET PO PRN (03:28)
[2020-02-15] MEDS: *HR* Heparin 5,000 UNIT/ML VIAL SQ SCH (05:31)
[2020-02-15 08:04] VITALS: BP 126/74
[2020-02-15] MEDS: Metoprolol XL (24 HR) Succ 25 MG TAB.ER.24H PO SCH (08:23)
[2020-02-15] MEDS: Isosorbide MONOnitrate (24 HR) 30 MG TAB.ER.24H PO SCH (08:24)
[2020-02-15] MEDS: Aspirin Enteric Coated 81 MG Tablet PO SCH (08:24)
[2020-02-15] MEDS: Furosemide 40 MG TABLET PO SCH (08:29)
[2020-02-15] MEDS: Lactulose Oral Soln 20 GM/30 ML UDC PO SCH (08:29)
[2020-02-15] MEDS: Ciprofloxacin/Dex *EAR* Susp 7.5 ML BOTTLE RIGHT EAR SCH (08:38)
[2020-02-15 10:57] LABS: Basophils # 0.1 K/mcL (0.0-0.2); Basophils % 1.1 %; Eosinophils # 0.2 K/mcL (0.0-0.6); Eosinophils % 3.3 %; Hematocrit 35.1 % (37.5-50.1); Hemoglobin 11.8 g/dL (12.9-16.9); Immature Granulocytes % 0.8 % (0-4); Lymphocytes # 0.8 K/mcL (0.6-4.6); Mean Corpuscular HGB Conc 33.6 g/dL (31.6-35.5); Mean Corpuscular Hemoglobin 31.8 pg (28.0-33.3); Mean Corpuscular Volume 94.6 fL (83.0-100.0); Mean Platelet Volume 10.4 fL (9.4-12.4); Monocytes # 0.5 K/mcL (0.0-1.3); Monocytes % 8.5 %; Neutrophils # 4.6 K/mcL (1.6-8.9); Platelet Count 199 K/mcL (140-400); Red Blood Count 3.71 M/mcL (4.19-5.50); Red Cell Distribution Width 13.2 % (11.5-14.5); Segmented Neutrophils % 73.3 %; White Blood Count 6.3 K/mcL (4.3-11.1)
[2020-02-15 11:17] LABS: BUN/Creatinine Ratio 14 (6-26); Blood Urea Nitrogen 12 mg/dL (8-23); Carbon Dioxide 29 mEq/L (23-29); Chloride 97 mEq/L (98-107); Glucose 170 mg/dL (70-105); Osmolality,Calculated 280 (280-300); Potassium 3.2 mEq/L (3.5-5.1); Sodium 133 mEq/L (136-145); eGFR For African Americans > 60 (> 60); eGFR For Non-African Americans > 60 (> 60)
[2020-02-16 09:39] LABS: ANA IgG by ELISA DETECTED (None Detected)
[2020-02-16 20:00] LABS: ANA HEp-2 IgG IFA DETECTED (<1:80); Anti Nuclear Ab Pattern SPECKLED
== END 2020-02-15 12:47 | disposition short-term general hospital (02) | DRG 871 ==
LOC: 2NENU → SUATTDRO 02-04 12:30 → 3ANU 02-06 16:46
PROVIDERS: ADMIT Internal Medicine; ATTEND Internal Medicine